=== PATIENT | male | born 1945 | race Caucasian/White ===

== ENCOUNTER 2018-07-09 07:28 | Day surgery (SDC) | payer MEDICARE, OTHER ==
[~2018-07-09] VITALS: Ht 182.9 cm; Wt 93.3 kg
[~2018-07-09 07:28] MED LIST: AFRIN NASAL SPR15 M1 NS; B-1250 MCG PO; CALCIUM + D 6001 TA1 PO; CLONAZEPAM0.5 MG PO; DIAZEPAM5 MG PO; EPA FISH OIL1000 MG PO; FLONASE NASAL S16 GM NS; FOLIC ACID1 MG PO; GLUCOSAMINE & C1 TA1 PO; KLONOPIN 0.5MG0.5 MG PO; KLONOPIN0.5 MG PO; METAMUCIL1 PDR PO; METHOTREXATE2.5 M1 PO; MUCINEX DM 30 M1 TE1 PO; NASONEX SPRAY NAS; PERCOCET 325 MG1 TA2 PO; SEA OMEGA 301 SGL PO; ULTRAM50 MG PO; VITAMIN D32000 IU PO
[2018-07-09 07:55] VITALS: BP 143/84; PULSE 79; TEMP 97.3
[2018-07-09] MEDS ORDERED: FLONASEALLERGY NS ×2 (08:27→08:28)
[2018-07-09] MEDS ORDERED: AFRIN 15 ML15 ML NS (08:28)
[2018-07-09] MEDS ORDERED: MUCINEX D1 TER PO ×2 (08:29→08:30)
[2018-07-09] MEDS ORDERED: NEURONTIN300 MG/CAP PO (08:33)
[2018-07-09] MEDS ORDERED: ULTRAM 50MG TAB50 MG PO (08:33)
[2018-07-09] MEDS ORDERED: B-12 100 MCG PO (08:34)
[2018-07-09] MEDS ORDERED: MASON NATURAL2000 IU PO (08:35)
[2018-07-09] MEDS ORDERED: FOLIC ACID 40400 MCG PO ×2 (08:36→08:37)
[2018-07-09] MEDS ORDERED: PRILOSEC 20MG20 MG PO (08:37)
[2018-07-09] MEDS ORDERED: GLUCOSAMINE & C1 CA2 PO (08:38)
[2018-07-09] MEDS ORDERED: OMEGA-31 SGL PO (08:39)
[2018-07-09 09:10] VITALS: BP 142/77; PULSE 77; TEMP 97.6
--- NOTE | 2018-07-09 09:10 | NUR ---
PATIENT RETURNS TO BAY 3 FROM THE OR. ALERT AND ORIENTED X 3. DENIES PAIN. GAVE HIN ORANGE JUICE. CALL LIGHT WITHIN REACH.
[2018-07-09 09:25] VITALS: BP 150/87; PULSE 70; TEMP 97.8
--- NOTE | 2018-07-09 09:25 | NUR ---
PATIENT FINISHED HIS ORANGE JUICE, VERBALIZED DESIRE TO BE DISCHARGED TO HOME.
--- NOTE | 2018-07-09 09:42 | NUR ---
IV SITE DISCHARGED AT THIS TIME, SITE WNL. DISCHARGE INSTRUCTIONS GIVEN TO PATIENT AND SPOUSE.
--- NOTE | 2018-07-09 09:48 | NUR ---
PATIENT WALKED TO DOOR INDEPENDANTLY, STEADY GAIT. ALL QUESTIONS ANSWERS AND PATIENT VERBALIZED UNDERSTANDING.
== END 2018-07-09 09:48 | disposition home or self-care (01) ==
LOC: SDCO 07:28
DX: Z12.11 Encounter for screening for malignant neoplasm of colon (principal); Z79.899 Other long term (current) drug therapy; M17.0 Bilateral primary osteoarthritis of knee; G89.29 Other chronic pain; M51.17 Intervertebral disc disorders with radiculopathy, lumbosacral region; F41.1 Generalized anxiety disorder; Z85.46 Personal history of malignant neoplasm of prostate; Z85.828 Personal history of other malignant neoplasm of skin; Z80.0 Family history of malignant neoplasm of digestive organs; D64.9 Anemia, unspecified; F32.9 Major depressive disorder, single episode, unspecified; J30.9 Allergic rhinitis, unspecified; H40.059 Ocular hypertension, unspecified eye
CPT/HCPCS: OP; J2704; J3010; J7030

== ENCOUNTER → 2018-08-13 | Outpatient (CLI) | payer MEDICARE, OTHER ==
[~2018-08-13] MED LIST changes: +AFRIN 15 ML15 ML NS; +B-12 100 MCG PO; +FLONASEALLERGY NS; +FOLIC ACID 40400 MCG PO; +GLUCOSAMINE & C1 CA2 PO; +MASON NATURAL2000 IU PO; +MUCINEX D1 TER PO; +NEURONTIN300 MG/CAP PO; +OMEGA-31 SGL PO; +PRILOSEC 20MG20 MG PO; +ULTRAM 50MG TAB50 MG PO
== END ==
LOC: COL.RAD 09:07
DX: C61 Malignant neoplasm of prostate (principal)
CPT/HCPCS: A9503

== ENCOUNTER → 2020-02-09 | Outpatient (CLI) | payer MEDICARE, OTHER | LOC: COL.RAD 01-29 09:45 | DX: M48.061 Spinal stenosis, lumbar region without neurogenic claudication (principal); M43.16 Spondylolisthesis, lumbar region; M51.36 Other intervertebral disc degeneration, lumbar region ==

== ENCOUNTER 2020-09-15 14:11 | Day surgery (SDC) | payer MEDICARE, OTHER ==
[2020-09-15] VITALS (7 sets, daily range): BP systolic 142–171; BP diastolic 62–83; PULSE 54–73; TEMP 97.2–97.6
[~2020-09-15] VITALS: Ht 182.9 cm; Wt 91.5 kg
[~2020-09-15 14:11] MED LIST changes: -B-12 100 MCG PO; -GLUCOSAMINE & C1 CA2 PO; +GLUCOSAMINE & C1 TAB PO; +VITAMIN B12 781 TAB PO
[2020-09-15] MEDS ORDERED: AFRIN 15 ML15 ML NS (14:44)
[2020-09-15] MEDS ORDERED: SINGULAIR 110 MG/TAB PO (14:46)
[2020-09-15] MEDS ORDERED: KLONOPIN 0.5MG0.5 MG PO (14:46)
[2020-09-15] MEDS ORDERED: ZYRTEC 10MG10 MG PO (14:46)
[2020-09-15] MEDS ORDERED: ADVIL200 MG PO (14:47)
[2020-09-15] MEDS ORDERED: XALATAN EYE DROPS OD (14:50)
[2020-09-15] MEDS ORDERED: TIMOPTIC OCUDOSE0.5% OD (14:50)
--- NOTE | 2020-09-15 15:50 | NUR ---
Pt to [facility] via cart from [place]. Pt drowsy, but awake. Pt denies pain or nausea. Ash catheter attached to leg bag draining pale yellow clear urine. in room. Will continue to monitor. Call light within reach.
--- NOTE | 2020-09-15 16:05 | NUR ---
Pt continues to rest. Denies pain or nausea. Pt tolerating a muffin and juice without difficulties. Will continue to monitor. Call light within reach.
--- NOTE | 2020-09-15 16:20 | NUR ---
Pt continues to rest. Denies needs. Call light within reach.
--- NOTE | 2020-09-15 16:35 | NUR ---
Hydralazine 5mg IV given for HTN per PRN orders. Pt resting. Denies pain or nausea. Will continue to monitor. Call light within reach.
--- NOTE | 2020-09-15 17:05 | NUR ---
Pt continues to rest. Blood pressure has come down. Education on blancas care, switching between leg bag/ blancas bag, emptying of bags, and signs/symptoms of complications reviewed with pt and . Both voice understanding. Stat lock applied to right thigh. IV site discontinued with all parts intact. Pt up to dress.
--- NOTE | 2020-09-15 17:35 | NUR ---
Discharge instructions reviewed. Pt voices understanding.
--- NOTE | 2020-09-15 17:45 | NUR ---
Pt escorted to private car via wheel chair. Pt accompanied home by his .
== END 2020-09-15 17:45 | disposition home or self-care (01) ==
LOC: SDCO 14:11
DX: N32.0 Bladder-neck obstruction (principal); R39.12 Poor urinary stream; R35.0 Frequency of micturition; C61 Malignant neoplasm of prostate; M19.90 Unspecified osteoarthritis, unspecified site; G25.81 Restless legs syndrome; M06.9 Rheumatoid arthritis, unspecified; Z90.79 Acquired absence of other genital organ(s); Z20.822 Contact with and (suspected) exposure to COVID-19; Z79.899 Other long term (current) drug therapy
CPT/HCPCS: J0360; J2704; J7120

== ENCOUNTER 2020-11-23 17:26 | Emergency (ER) | payer MEDICARE, OTHER ==
[~2020-11-23] VITALS: Ht 182.9 cm; Wt 88.6 kg
[~2020-11-23 17:26] MED LIST changes: +ADVIL200 MG PO; +SINGULAIR 110 MG/TAB PO; +TIMOPTIC OCUDOSE0.5% OD; +XALATAN EYE DROPS OD; +ZYRTEC 10MG10 MG PO
[2020-11-23 17:32] VITALS: TEMP 97.9
[2020-11-23] MEDS ORDERED: CEPHALEXIN500 M1 PO (19:47)
[2020-11-23 20:02] VITALS: BP 185/90; PULSE 71
== END 2020-11-23 20:02 | disposition home or self-care (01) ==
LOC: COL.ER 17:26
DX: S62.613A Displaced fracture of proximal phalanx of left middle finger, initial encounter for closed fracture (principal); S61.213A Laceration without foreign body of left middle finger without damage to nail, initial encounter; S51.012A Laceration without foreign body of left elbow, initial encounter; K21.9 Gastro-esophageal reflux disease without esophagitis; Z23 Encounter for immunization; Z79.899 Other long term (current) drug therapy; W23.0XXA Caught, crushed, jammed, or pinched between moving objects, initial encounter; Y92.009 Unspecified place in unspecified non-institutional (private) residence as the place of occurrence of the external cause

== ENCOUNTER → 2020-12-06 | Outpatient (CLI) | payer MEDICARE, OTHER ==
[~2020-12-06] MED LIST changes: +CEPHALEXIN500 M1 PO
[2020-12-06 13:15] VITALS: BP 137/65; PULSE 66; TEMP 97.6
== END ==
LOC: COL.ER 12:24
DX: Z48.02 Encounter for removal of sutures (principal)